=== PATIENT | male | born 1995 | race African-American/Black ===

== ENCOUNTER 2019-10-09 17:47 | Emergency (ER) | payer OTHER, SELFPAY ==
[2019-10-09 17:52] VITALS: BP 143/81; PULSE 93; RESP 16; TEMP 36.7; O2SAT 99
--- NOTE | 2019-10-09 18:12 | ED.MALEGU ---
HPI - Male Genitourinary General Chief complaint: Urogenital-Male Stated complaint: here for std screen Time Seen by Provider: 10/09/19 17:48 Source: patient Mode of arrival: ambulatory Limitations: no limitations History of Present Illness HPI Narrative: This is a 24 year old male that presents to the ER for STD screen. Reports he has had burning with urination for 1.5 weeks. Denies fever, abdominal pain, vomiting, hematuria, or genital lesions. Related Data Allergies Allergy/AdvReac Type Severity Reaction Status Date / Time clarithromycin AdvReac Mild itching Verified 10/09/19 20:29 Review of Systems Review of Systems: Narrative: CONSTITUTIONAL: Denies fever GASTROINTESTINAL: Denies abdominal pain, nausea, vomiting GENITOURINARY: Reports dysuria. Denies hematuria. SKIN: Denies rash All systems reviewed & are unremarkable except as noted in HPI and below PMFSH Past Medical History Medical History (Updated 10/09/19 @ 20:36 by Asia Arora PA-C) History of seizures Social History Social History (Updated 10/09/19 @ 18:14 by Asia Arora PA-C) Substance use type: marijuana Gender identity (if verbalized by the patient): Male Exam Narrative: Exam Narrative: GENERAL: Well-appearing, well-nourished, and in no acute distress. HEAD: Normocephalic, atraumatic. EYES: EOMI. CHEST: Clear to auscultation. No respiratory distress. No wheezes rales or rhonchi HEART: Regular rate and rhythm. No murmur heard. Normal peripheral pulses. ABDOMEN: Soft, nontender, nondistended, normal active bowel sounds. EXTREMITIES: Normal range of motion. No edema. SKIN: Warm, dry, no rash. NEURO: No focal deficits. Alert and oriented x3. PSYCH: Normal mood and affect Course Vital Signs Vital signs: Vital Signs Temperature 98.0 F 10/09/19 17:52 Pulse Rate 93 10/09/19 17:52 Respiratory Rate 16 10/09/19 17:52 Blood Pressure 143/81 H 10/09/19 17:52 Pulse Oximetry 99 10/09/19 17:52 Temperature 98.0 F 10/09/19 17:52 Pulse Rate 93 10/09/19 17:52 Respiratory Rate 16 10/09/19 17:52 Blood Pressure 143/81 H 05/14/20 17:52 Pulse Oximetry 99 10/09/19 17:52 MDM - Male Genitourinary MDM Narrative Medical decision making narrative: Patient presents the emergency department for STD check. Reports he has had some burning with urination. Vitals are normal other than mild elevation in blood pressure to systolic in the 140s. UA is without obvious evidence of infection. Chlamydia, gonorrhea and trichomonas were sent. Gave patient UA results. He reports he would still like to be presumptively treated for these STDs. Patient given ceftriaxone and Flagyl. He will be started on doxycycline as he has a clarithromycin allergy. Patient is to follow-up with primary care doctor. He was given warnings to return to the ER Lab Data Attestation: I reviewed the patient's lab results. Labs: Lab Results 10/09/19 10/09/19 10/09/19 Range/Units 18:13 18:27 18:27 Urine Color Yellow (Yellow) Urine Appearance Clear (Clear) Urine pH 7.0 (5.0-9.0) Ur Specific [place] 1.014 (1.001-1.035) Urine Protein Negative (Negative) mg/dL Urine Glucose (UA) Negative (Negative) mg/dL Urine Ketones Negative (Negative) mg/dL Ur Blood (Man) Negative (Negative) Urine Nitrate Negative (Negative) Urine Bilirubin Negative (Negative) Urine Urobilinogen Negative (<2.0) mg/dL Leukocyte Esterase Rfl Negative (Negative) [place]/UL C.trachomatis RNA (TMA) Pending N.gonorrhoeae RNA (TMA) Pending Trichomonas Direct ID Pending Critical Care Time Critical Care Time Critical Care Time: No Discharge Plan Discharge Clinical Impression: Concern about STD in male without diagnosis Patient Disposition: Home, Self-Care Condition: Stable Instructions: Antibiotic Form, Sexually Transmitted Diseases (ED), Safe Sex Practices for Adolescents (ED) Additional
[2019-10-09 19:32] LABS: Color Urine Yellow (Yellow)
[2019-10-09 19:33] LABS: Add Urine Microscopic? NO; Appearance Urine Clear (Clear); Bilirubin Urine Negative (Negative); Blood Urine Negative (Negative); Glucose Urine UA Negative (Negative); Ketones Urine Negative (Negative); Leukocyte Esterase Ur Negative LEU/UL (Negative); Nitrate Urine Negative (Negative); Protein Urine Negative (Negative); Specific Grav Ur 1.014 (1.001-1.035); Urobilinogen Urine Negative mg/dL (<2.0)
[2019-10-09] MEDS: cefTRIAXone 250 MG VIAL IM (20:46)
[2019-10-09] MEDS: metroNIDAZOLE 250 MG TABLET 2000 MG PO (20:46)
[2019-10-09] MEDS: DOXYCYCLINE HYCLATE 100 MG TABLET PO (20:46)
[2019-10-09 21:06] VITALS: BP 128/80; PULSE 88; RESP 20; TEMP 36.7; O2SAT 99
== END 2019-10-09 21:07 | disposition home or self-care (01) ==
PROVIDERS: Physician Assistant; Emergency Provider Emergency Medicine
DX: R30.0 Dysuria (principal)
CPT/HCPCS: 81003; 87491; 87591; 87661; 87808; 96372; 99283; A9270; J0696